=== PATIENT | female | born 1935 | race Caucasian/White ===

== ENCOUNTER 2017-02-16 16:55 | Emergency (ER) | payer OTHER ==
[~2017-02-16] VITALS: Ht 152.4 cm; Wt 51.4 kg
[~2017-02-16 16:55] MED LIST: ACET-2247 PO; AMLO-512 PO; ATEN100T PO; ATOR20TA86 PO; DSS100 PO; EPOE10I SQ; FERR-89 PO; LEVO100 PO; MIRT15 PO; ONDA4 PO; PANT40TA25 PO; PRED10 PO; PRED20 PO; PRED5 PO
[2017-02-16 18:13] LABS: BASOPHILS # (AUTO) 0.05 K/uL (0.00-0.20); BASOPHILS % (AUTO) 0.5 % (0.0-2.0); EOSINOPHILS # (AUTO) 0.09 K/uL (0.00-0.70); EOSINOPHILS % (AUTO) 0.85 % (1.0-6.0); HEMATOCRIT 22.9 % (36-46); HEMOGLOBIN 7.1 g/dL (12.0-16.0); LYMPHOCYTES # (AUTO) 1.2 K/uL (1.0-4.8); LYMPHOCYTES % (AUTO) 11.3 % (22.0-44.0); MEAN CORPUSCULAR HEMOGLOBIN 24.8 pg (26.0-34.0); MEAN CORPUSCULAR HGB CONC 31.2 G/dL (31.0-37.0); MEAN CORPUSCULAR VOLUME 79 fL (80-100); MONOCYTES # (AUTO) 1.2 K/uL (0.1-1.0); MONOCYTES % (AUTO) 11.3 % (2.0-9.0); NEUTROPHILS # (AUTO) 7.9 K/uL (1.8-7.7); NEUTROPHILS % (AUTO) 76.1 % (40.0-70.0); PLATELET COUNT (AUTO) 331 K/uL (150-450); RED BLOOD CELL COUNT(AUTO) 2.88 MIL/uL (4.00-5.20); RED CELL DISTRIBUTION WIDTH 18.5 % (11.5-14.5); WHITE BLOOD COUNT (AUTO) 10.4 K/uL (4.5-11.0)
[2017-02-16 18:22] LABS: CALCIUM, TOTAL 8.3 mg/dL (8.8-10.5); CREATININE 1.75 mg/dL (0.60-1.30); POTASSIUM 4.9 mmol/L (3.5-5.1)
[2017-02-16 18:28] LABS: ALBUMIN 2.6 g/dL (3.4-5.0); BILIRUBIN,TOTAL 0.3 mg/dL (0.1-1.0); TOTAL PROTEIN, SERUM 7.8 g/dL (6.4-8.2)
[2017-02-16 18:58] LABS: RBC MORPHOLOGY COMMENT ABNORMAL RBC MORPH
[2017-02-16 19:55] VITALS: BP 118/78
== END 2017-02-16 19:56 | disposition home or self-care (01) ==
LOC: EMS 16:57
DX: D64.9 Anemia, unspecified (principal); I10 Essential (primary) hypertension; E03.9 Hypothyroidism, unspecified; E78.00 Pure hypercholesterolemia, unspecified
CPT/HCPCS: 86850; 86900; 86901; 99285